=== PATIENT | female | born 1975 | race Caucasian/White ===

== ENCOUNTER 2017-03-25 21:45 | Emergency (ER) | payer OTHER ==
[2017-03-25 21:51] VITALS: BP 105/54; PULSE 78; TEMP 98.1; BMI 16.9
--- NOTE | 2017-03-25 22:24 | PDOC ---
History of Present Illness - General Chief Complaint: Rash Stated Complaint: RASH Time Seen by Provider: 03/25/17 22:18 History Source: Patient Exam Limitations: No Limitations - History of Present Illness Initial Comments: 03/25/17 22:25 patient here for c/o pain to throat and rash covering all of body x 2 days. + fevers/ no cough. No cough 03/25/17 22:31 Timing/Duration: reports: changing over time, getting worse Severity: Yes: mild Location: reports: face, torso Respiratory Risk Factors: reports: no cause identified Associated Symptoms: reports: denies symptoms, flushing, nasal congestion Past History - Travel Traveled outside of the country in the last 30 days: No Close contact w/someone who was outside of country & ill: No - Past Medical History Allergies/Adverse Reactions: Allergies Allergy/AdvReac Type Severity Reaction Status Date / Time No Known Drug Allergies Allergy Verified 03/25/17 21:51 Home Medications: Ambulatory Orders Mirabegron [Myrbetriq] 50 mg PO DAILY 04/29/16 Amoxicillin - [Amoxicillin 500mg Capsule -] 500 mg PO BID #14 capsule 05/02/16 Azithromycin [Zithromax -] 250 mg PO UTDICT #6 tab 03/25/17 Anemia: No Asthma: No Cancer: No Cardiac Disorders: No CVA: No COPD: No CHF: No Dementia: No Diabetes: No GI Disorders: No Disorders: No HTN: No Hypercholesterolemia: No Kidney Stones: Yes Liver Disease: No Seizures: No Thyroid Disease: No - Surgical History Abdominal Surgery: No Appendectomy: No Cardiac Surgery: No Cholecystectomy: No Lung Surgery: No Neurologic Surgery: No Orthopedic Surgery: No - Immunization History Td Vaccination: Yes Immunization Up to Date: Yes - Psycho/Social/Smoking Cessation Hx Anxiety: No Suicidal Ideation: No Smoking Status: No Smoking History: Never smoked Years of Tobacco Use: 0 Have you smoked in the past 12 months: No Number of Cigarettes Smoked Daily: 0 Cigars Per Day: 0 Hx Alcohol Use: No Drug/Substance Use Hx: No Substance Use Type: None Hx Substance Use Treatment: No Review of Systems - Review of Systems Able to Perform ROS?: Yes Is the patient limited Iranian proficient: Yes Constitutional: Yes: Symptoms Reported, See HPI, Fever, Malaise HEENTM: Yes: See HPI. No: Symptoms Reported Respiratory: Yes: See HPI, Cough. No: Symptoms reported Integumentary: Yes: Symptoms Reported, See HPI, Erythema, Rash All Other Systems: Reviewed and Negative *Physical Exam - Vital Signs Last Vital Signs Temp Pulse Resp BP Pulse Ox 98.1 F 78 18 105/54 99 03/25/17 21:48 03/25/17 21:48 03/25/17 21:48 03/25/17 21:48 03/25/17 21:48 - Physical Exam General Appearance: Yes: Nourished, Appropriately Dressed, Apparent Distress, Mild Distress HEENT: positive: EOMI, CASA, Normal ENT Inspection, TMs Normal, Tonsillar Erythema, Rhinorrhea. negative: Pharynx Normal, Tonsillar Exudate Neck: positive: Tender, Supple, Lymphadenopathy (R), Lymphadenopathy (L) Respiratory/Chest: positive: Lungs Clear, Normal Breath Sounds, Accessory Muscle Use. negative: Chest Tender Cardiovascular: positive: Regular Rhythm Gastrointestinal/Abdominal: positive: Normal Bowel Sounds, Soft. negative: Tender Musculoskeletal: positive: Normal Inspection Extremity: positive: Normal Capillary Refill, Normal Inspection, Normal Range of Motion. negative: Tender Integumentary: positive: Normal Color, Dry, Warm, Rash Neurologic: positive: hydrometer calibrator II-XII NML intact, Fully Oriented, Alert, Normal Mood/ Affect, Normal Response, Motor Strength 5/5 Progress Note - Progress Note Progress Note: probable strep rash/ will treat with Zithromax *DC/Admit/Observation/Transfer Diagnosis at time of Disposition: Pharyngitis Qualifiers: Pharyngitis/tonsillitis etiology: unspecified etiology Qualified Code(s): J02.9 - Acute pharyngitis, unspecified - Discharge Dispostion Disposition: HOME Condition at time of disposition: Stable Admit: No - Patient Instructions Printed Discharge Instructions: DI for Pharyngitis/Tonsillopharyngitis -- Adult Additional Instructions: Rest, drink lots of fluids: Teas, water, soups Eat cold things: Ice cream, ice pops, ice chips Saltwater gargles Steamy showers/seem to face break up mucus Avoid contact with others until fevers and pain resolved Lots of handwashing and good hygiene, this is contagious Azithromycin as directed, antibiotic for treatment of strep Tylenol or Motrin for fever and pain Followup with private physician in one to 2 days as needed if not improving Return to emergency department for worsened symptoms, fevers, dehydration - Post Discharge Activity Work/School Note: Back to Work
== END 2017-03-25 22:57 | disposition home or self-care (01) ==
LOC: JERFT 21:45 → JER 21:45 → JERFT 22:57
DX: J02.9 Acute pharyngitis, unspecified (principal)
CPT/HCPCS: 99281-25

== ENCOUNTER 2020-10-10 21:23 | Emergency (ER) | payer OTHER ==
[2020-10-10 21:37] VITALS: BP 139/75; PULSE 70; TEMP 98; BMI 18.8
[2020-10-10] MEDS ORDERED: LIDOCAINE 5% TOPICAL PATCH TP ONE (22:35)
[2020-10-10] MEDS ORDERED: ACETAMINOPHEN 1000 MG/100 ML VIAL (NON FORMULARY) IVPB ONE (22:36)
[2020-10-10] MEDS ORDERED: KETOROLAC TROMETHAMINE 30 MG/1 ML VIAL IM ONE (22:36)
[2020-10-10] MEDS ORDERED: METHOCARBAMOL 500 MG TABLET PO ONE (22:43)
[2020-10-10] MEDS ORDERED: METHOCARBAMOL 500 MG TABLET ONE (23:32)
[2020-10-10] MEDS ORDERED: LIDOCAINE 5% TOPICAL PATCH ONE (23:32)
[2020-10-10] MEDS ORDERED: KETOROLAC TROMETHAMINE 30 MG/1 ML VIAL ONE (23:33)
[2020-10-10] MEDS ORDERED: ACETAMINOPHEN INJECTION 100 ML IVPB ONE (23:43)
[2020-10-11] MEDS ORDERED: LIDOCAINE PATCH REMOVAL MC SCH (11:00)
== END 2020-10-11 00:09 | disposition home or self-care (01) ==
LOC: JER 21:23
PROC: 3E0333Z Introduction of Anti-inflammatory into Peripheral Vein, Percutaneous Approach (ICD-10-PCS; principal; 2020-10-10)
PROC: 3E0233Z Introduction of Anti-inflammatory into Muscle, Percutaneous Approach (ICD-10-PCS; 2020-10-10)
DX: S46.011A Strain of muscle(s) and tendon(s) of the rotator cuff of right shoulder, initial encounter (principal)
CPT/HCPCS: 73030-TC-RT-FY; 99284-25; J0131

== ENCOUNTER → 2021-02-11 | Day surgery (SDC) | payer OTHER | END | disposition home or self-care (01) | LOC: FMAMMOTONE 10:03 | PROVIDERS: ATTEND Physician Assistant | PROC: 0HBU3ZX Excision of Left Breast, Percutaneous Approach, Diagnostic (ICD-10-PCS; principal; 2021-02-11) | DX: N60.32 Fibrosclerosis of left breast (principal); N64.89 Other specified disorders of breast; R92.8 Other abnormal and inconclusive findings on diagnostic imaging of breast | CPT/HCPCS: 19081; 76098-TC-FY; 87899; 88305-TC; A4648 ==

== ENCOUNTER 2024-03-28 21:15 | Emergency (ER) | payer OTHER ==
[2024-03-28 21:21] VITALS: BP 127/73; PULSE 70; RESP 20; TEMP 97.7; BMI 24.5
[2024-03-28] MEDS ORDERED: ACETAMINOPHEN 500 MG TABLET (FP) ONE (22:02)
[2024-03-28] MEDS ORDERED: IBUPROFEN 400 MG TABLET (FP) PO ONE (22:02)
[2024-03-28] MEDS: ACETAMINOPHEN 500 MG TABLET (FP) PO ONE (22:03)
[2024-03-28] MEDS: IBUPROFEN 400 MG TABLET (FP) PO ONE (22:03)
== END 2024-03-28 23:29 | disposition home or self-care (01) ==
LOC: JER 21:15
DX: S92.515A Nondisplaced fracture of proximal phalanx of left lesser toe(s), initial encounter for closed fracture (principal); W01.0XXA Fall on same level from slipping, tripping and stumbling without subsequent striking against object, initial encounter
CPT/HCPCS: 73630-TC-LT; 73660-TC-LT-FY; 99283-25

== ENCOUNTER 2024-05-14 15:12 | Emergency (ER) | payer OTHER ==
[2024-05-14 15:32] VITALS: BP 136/96; PULSE 96; RESP 20; TEMP 98.8; BMI 20.7
== END 2024-05-14 16:18 | disposition home or self-care (01) ==
LOC: JER 15:12
DX: F12.920 Cannabis use, unspecified with intoxication, uncomplicated (principal); R51.9 Headache, unspecified; R11.0 Nausea; R42 Dizziness and giddiness
CPT/HCPCS: 99283-25